=== PATIENT | male | born 1990 | race Caucasian/White ===

== ENCOUNTER 2020-01-08 09:09 | Emergency (ER) | payer SELFPAY ==
[~2020-01-08] VITALS: Ht 167.6 cm; Wt 72.7 kg
[2020-01-08] MEDS ORDERED: CYCLOBENZAPRINE HCL 10 MG TABLET PO ONE (10:30)
[2020-01-08] MEDS: KETOROLAC TROMETHAMINE 60 MG/2 ML VIAL IM ONE ×2 (10:38→10:42)
[2020-01-08 11:00] VITALS: BP 154/103
== END 2020-01-08 11:02 | disposition home or self-care (01) ==
LOC: EMS 09:11
DX: M54.41 Lumbago with sciatica, right side (principal)
CPT/HCPCS: 96372; 99283; J1885